=== PATIENT | male | born 1945 | race Caucasian/White ===

== ENCOUNTER → 2019-05-30 09:34 | Outpatient (BNVA) | payer OTHER, SELFPAY | PROVIDERS: Visit Provider Otolaryngology | DX: J33.9 Nasal polyp, unspecified (principal) | CPT/HCPCS: 99203; 99214 ==

== ENCOUNTER 2019-07-20 11:50 | Outpatient (CLI) | payer OTHER, SELFPAY ==
--- NOTE | 2019-07-20 13:00 | CT_ITS ---
WS: [id number] CT SINUSES TECHNIQUE: Noncontrast CT of the paranasal sinuses with coronal and sagittal reformatted images. CLINICAL INFORMATION: NASAL POLYP COMPARISON: None. DLP: 587.[address] scans at [facility] use at least one of these dose optimization techniques: automat ed exposure control; mA and/or kV adjustment per patient size (includes targeted exams where dose is matched to clinical indication); or iterative reconstruction. FINDINGS: Mild left to right nasal septal deviation measuring 3 mm. Complete opacification of the frontal sinus es and frontoethmoidal recesses with polypoid-type mucosal thickening extending into the anterior eth moid air cells. Chronic appearing osteolysis involving the ethmoid septae consistent with chronic opa cification. Bony remodeling involving the maxillary sinuses which are completely opacified. Complete opacification of the ostiomeatal units bilaterally. Opacification of the middle meatus bilaterally. Slight bony dehiscence involving the inferior maxillary sinuses at the maxillary junction. Slight exp ansile remodeling involving the frontal sinuses. Fluid and secretions in the right sphenoid sinus with occlusion of the right sphenoid sinus ostia. Tr ghulam mucosal thickening left sphenoid sinus ostia. Mastoid air cells are well aerated. Normal parapharyngeal fat. Partially visualized mild small vessel changes intracranially. Intracranial vascular calcification. CT/CT sinus wo con* [id number] IMPRESSION: 1. Diffuse complete soft tissue opacification with bony remodeling involving t he frontal sinuses, frontal ethmoid recesses, maxillary sinuses, and ostiomeata l units bilaterally most consistent with sinonasal polyposis. Lobulated polyps involving the anterior ethmoid air cells. 2. Chronic bony remodeling involving the ethmoid septae consistent with chroni c opacification. 3. Mastoid air cells are well aerated. 4. Small amount of fluid in the right sphenoid sinus. 5. Intracranial vascular calcification. 6. Tiny areas of bony disc has signs involving the inferior maxillary sinuses and the maxillary junction with poor dentition.
== END 2019-07-20 11:51 | disposition home or self-care (01) ==
LOC: CT 11:55
PROVIDERS: Visit Provider Otolaryngology
DX: J33.9 Nasal polyp, unspecified (principal); G93.89 Other specified disorders of brain
CPT/HCPCS: 70486

== ENCOUNTER → 2019-07-24 10:24 | Outpatient (BNVA) | payer OTHER, SELFPAY | PROVIDERS: Visit Provider Otolaryngology | DX: J33.9 Nasal polyp, unspecified (principal); J32.4 Chronic pansinusitis | CPT/HCPCS: 96372; 99214; J3301 ==

== ENCOUNTER → 2022-09-28 09:08 | Outpatient (BNVA) | payer OTHER, SELFPAY | PROVIDERS: PCP Physician Assistant; Referring Provider Physician Assistant; Visit Provider Psychiatry & Neurology Neurology | DX: R25.1 Tremor, unspecified (principal); Z98.890 Other specified postprocedural states; R55 Syncope and collapse; M54.50 Low back pain, unspecified; M79.604 Pain in right leg; M54.16 Radiculopathy, lumbar region; I48.91 Unspecified atrial fibrillation; Z79.01 Long term (current) use of anticoagulants; I10 Essential (primary) hypertension; Z96.651 Presence of right artificial knee joint | CPT/HCPCS: 99204 ==

== ENCOUNTER → 2022-10-07 09:19 | Outpatient (BNVA) | payer OTHER, SELFPAY | PROVIDERS: PCP Physician Assistant; Visit Provider Psychiatry & Neurology Neurology | DX: R55 Syncope and collapse (principal) | CPT/HCPCS: 95812; 95813 ==

== ENCOUNTER 2022-10-14 07:25 | Outpatient (CLI) | payer OTHER, SELFPAY ==
--- NOTE | 2022-10-14 08:00 | MR_ITS ---
WS: [id number] MRI HEAD WITHOUT CONTRAST TECHNIQUE: Sagittal T1, T2 axial, T2 axial FLAIR, axial and coronal T1 images, axial susceptibility w eighted imaging, axial diffusion weighted images, and coronal T2 images were obtained. CLINICAL INFORMATION: R25.1 - Tremor, unspecified COMPARISON: None. FINDINGS: No evidence of restricted diffusion to suggest acute ischemia. Ventricular system and basal cisterns are patent. Moderate small vessel changes. Moderate parenchymal volume loss. Chronic lacunar infarct LEFT caudate. Normal vascular flow voids at the skull base. No extra-axial fluid collections. Paranas al sinuses demonstrate mild mucosal thickening. Mastoid air cells well aerated. Normal posterior naso pharynx and parapharyngeal fat. Visualized orbits appear normal. No hemosiderin on susceptibly weighted images. Normal optic chiasm and pituitary infundibulum. Modera te symmetric atrophy temporal lobes and hippocampal formations. Normal cavernous sinuses and Meckel's cave. MR/MR head wo con* [id number] IMPRESSION: 1. No evidence of restricted diffusion to suggest acute ischemia. 2. Moderate small vessel changes with moderate parenchymal volume loss. 3. Chronic lacunar infarct LEFT caudate. 4. Moderate symmetric atrophy temporal lobes hippocampal formations. 5. Normal optic chiasm and pituitary infundibulum. 6. No hemosiderin on susceptibly weighted images. 7. No significant brain stem atrophy.
--- NOTE | 2022-10-14 08:45 | MR_ITS ---
WS: [id number] MRI LUMBAR SPINE NONCONTRAST TECHNIQUE: Sagittal T1, T2 and STIR imaging. Axial T1 and T2 imaging. Patient refused contrast. Histo ry of contrast allergy. CLINICAL INFORMATION: Z98.890 - Other specified postprocedural states COMPARISON: None. FINDINGS: Mild lumbar curve. No acute compression. Prior postoperative changes laminectomy defects L4-L5. L1-L2: Mild disc bulging with impingement LEFT subarticular recess and traversing LEFT L2 nerve root. Moderate facet arthropathy. Mild LEFT foraminal narrowing with small LEFT foraminal protrusion. L2-L3: Mild disc bulging with impingement RIGHT subarticular recess and traversing RIGHT L3 nerve [place] t. Moderate facet arthropathy. Mild LEFT foraminal narrowing. L3-L4: Mild disc bulging with osteophytic ridging. Tiny central protrusion with mild central canal st enosis. Moderate facet arthropathy. Mild RIGHT foraminal narrowing. LEFT foramen is patent. L4-L5: Slight anterolisthesis L4 on L5. Shallow central protrusion with impingement on traversing L5 nerve roots bilaterally. Moderate facet arthropathy and ligamentum flavum hypertrophy. Moderate to se reji RIGHT foraminal narrowing. LEFT foramen is patent. Moderate central canal stenosis. L5-S1: Disc osteophyte complex with slight effacement of the ventral thecal sac. Slight impingement o n the traversing LEFT S1 nerve root. Moderate facet arthropathy. Moderate LEFT and mild RIGHT foramin al narrowing. Visualized pelvic bony structures: Normal. Paravertebral soft tissues: Normal. MR/MR lumbar spine wo con* [id number] IMPRESSION: 1. Mild lumbar curve. No acute compression. Slight anterolisthesis L4 on L5. 2. Moderate central canal stenosis L4-L5 with impingement on traversing L5 ner ve roots bilaterally. Moderate to severe RIGHT L4-L5 foraminal narrowing imping es the exiting RIGHT L4 nerve root. 3. Disc bulging L1-L2 impinges the LEFT subarticular recess and traversing LEF T L2 nerve root. Mild LEFT foraminal narrowing. 4. Mild central canal stenosis L3-L4 with a small central protrusion with impi ngement traversing L4 nerve roots bilaterally. 5. Moderate LEFT L5-S1 foraminal narrowing. 6. Mild LEFT L2-L3 and RIGHT L3-L4 foraminal narrowing.
== END 2022-10-14 07:26 | disposition home or self-care (01) ==
PROVIDERS: PCP Physician Assistant; Visit Provider Psychiatry & Neurology Neurology
DX: R25.1 Tremor, unspecified (principal); Z86.73 Personal history of transient ischemic attack (TIA), and cerebral infarction without residual deficits; Z98.890 Other specified postprocedural states; M48.061 Spinal stenosis, lumbar region without neurogenic claudication; M47.817 Spondylosis without myelopathy or radiculopathy, lumbosacral region; M51.36 Other intervertebral disc degeneration, lumbar region
CPT/HCPCS: 70551; 72148; 99204

== ENCOUNTER → 2022-10-28 09:03 | Outpatient (BNVA) | payer OTHER, SELFPAY | PROVIDERS: PCP Physician Assistant; Visit Provider Orthopaedic Surgery | DX: M54.50 Low back pain, unspecified (principal); M79.604 Pain in right leg | CPT/HCPCS: 72110; 99204 ==

== ENCOUNTER → 2022-11-25 08:23 | Outpatient (BNVA) | payer OTHER, SELFPAY | PROVIDERS: PCP Physician Assistant; Visit Provider Orthopaedic Surgery | DX: M54.16 Radiculopathy, lumbar region (principal) | CPT/HCPCS: 99214 ==

== ENCOUNTER → 2022-12-13 13:46 | Outpatient (BNVA) | payer OTHER, SELFPAY | PROVIDERS: PCP Physician Assistant; Visit Provider Psychiatry & Neurology Neurology | DX: M51.16 Intervertebral disc disorders with radiculopathy, lumbar region; R55 Syncope and collapse; G20 Parkinson's disease; G47.8 Other sleep disorders; I48.91 Unspecified atrial fibrillation; Z79.01 Long term (current) use of anticoagulants; F43.10 Post-traumatic stress disorder, unspecified; Z98.890 Other specified postprocedural states | CPT/HCPCS: 99212 ==

== ENCOUNTER → 2023-01-07 09:58 | Outpatient (BNVA) | payer OTHER, SELFPAY | PROVIDERS: PCP Physician Assistant; Visit Provider Clinical Nurse Specialist Adult Health | DX: Z01.818 Encounter for other preprocedural examination (principal); I10 Essential (primary) hypertension | CPT/HCPCS: 80048; 85025 ==